=== PATIENT | female | born 1985 | race Caucasian/White ===

== ENCOUNTER 2022-02-02 07:13 | Emergency (ER) | payer BC ==
[~2022-02-02] VITALS: Ht 167.6 cm; Wt 83.9 kg
[~2022-02-02 07:13] MED LIST: 'PARAFON FORTE500 M1 PO; BACTRIM DS 8001 TA1 PO; CLINDAMYCIN HC300 MG PO; HYDROCODONE BIT1 T11 PO; KEFLEX500 MG PO; LISINOPRIL10 MG PO; LORAZEPAM2 MG PO; NAPROSYN500 MG PO; PROZAC10 MG PO
[2022-02-02 07:54] LABS: BASO % 0.6 % (0.0-1.0); EOS # 0.1 10*3/uL (0.0-0.4); EOS % 1.2 % (1.0-4.0); HEMATOCRIT 38.9 % (37.0-47.0); LYMPH # 1.3 10*3/uL (1.3-4.4); LYMPH % 20.4 % (27.0-41.0); MEAN CELL VOLUME 85.1 fl (81.0-99.0); MEAN CORPUSCULAR HGB 28.2 pg (27.0-31.0); MEAN CORPUSCULAR HGB CONC 33.2 g/dl (33.0-37.0); MEAN PLATELET VOLUME 9.3 fl (9.6-12.3); MONO # 0.7 10*3/uL (0.1-1.0); MONO % 10.4 % (3.0-9.0); NEUT # 4.3 10*3/uL (2.3-7.9); NEUT % 66.9 % (47.0-73.0); PLATELET COUNT AUTOMATED 326 10*3/uL (130-400); RED BLOOD COUNT 4.57 10*6/uL (4.10-5.10); RED CELL DISTRI WIDTH 12.7 % (0-14.5); WHITE BLOOD COUNT 6.4 10*3/uL (4.8-10.8)
[2022-02-02 08:06] LABS: BUN 8 mg/dl (7-24); CHLORIDE 111 mmol/L (98-107); POTASSIUM 3.1 mmol/L (3.5-5.1); SODIUM 142 mmol/L (136-145)
[2022-02-02 08:11] LABS: B-hCG (QUALITATIVE) NEGATIVE (NEGATIVE)
[2022-02-02 08:55] LABS: BILIRUBIN Negative (Negative); BLOOD 3+ (Negative); CLARITY Clear (Clear); COLOR Yellow (Yellow); GLUCOSE Negative (Negative); KETONE Negative (Negative); LEUKO ESTERASE Negative (Negative); NITRITE Negative (Negative); SPECIFIC GRAVITY <= 1.005 (1.001-1.030)
[2022-02-02] MEDS ORDERED: ZOFRAN4 MG PO (08:58)
[2022-02-02 09:12] LABS: BACTERIA 2+; RBC 21-30 rbc/hpf (0-2)
== END 2022-02-02 09:00 | disposition home or self-care (01) ==
LOC: ED 07:13
PROVIDERS: Emergency Medicine
DX: H81.09 Meniere's disease, unspecified ear (principal); R11.2 Nausea with vomiting, unspecified; R19.7 Diarrhea, unspecified

== ENCOUNTER → 2022-09-18 | Outpatient (CLI) | payer BC ==
[~2022-09-18] MED LIST changes: +ZOFRAN4 MG PO
== END | disposition home or self-care (01) ==
LOC: MRI 08-20 14:00
PROVIDERS: ATTEND Specialist
DX: R42 Dizziness and giddiness (principal)

== ENCOUNTER 2023-08-20 09:13 | Emergency (ER) | payer OTHER, BC ==
[~2023-08-20] VITALS: Ht 182.8 cm; Wt 113.4 kg
[2023-08-20] MEDS ORDERED: MIXED AMPHETAMI30 MG PO (09:16)
[2023-08-20] MEDS ORDERED: LOSARTAN-HCTZ1 EACH PO (09:16)
[2023-08-20] MEDS ORDERED: BUSPIRONE HCL10 MG PO (09:16)
[2023-08-20] MEDS ORDERED: TRAZODONE50 MG PO (09:17)
[2023-08-20] MEDS ORDERED: LYLEQ0.35 MG PO (09:17)
[2023-08-20 10:17] LABS: BASO % 0.5 % (0.0-1.0); EOS # 0.1 10*3/uL (0.0-0.4); EOS % 1.4 % (1.0-4.0); HEMATOCRIT 37.2 % (37.0-47.0); LYMPH # 1.6 10*3/uL (1.3-4.4); LYMPH % 18.1 % (27.0-41.0); MEAN CELL VOLUME 84.4 fl (81.0-99.0); MEAN CORPUSCULAR HGB 27.9 pg (27.0-31.0); MEAN CORPUSCULAR HGB CONC 33.1 g/dl (33.0-37.0); MEAN PLATELET VOLUME 9.3 fl (9.6-12.3); MONO # 0.7 10*3/uL (0.1-1.0); NEUT # 6.3 10*3/uL (2.3-7.9); NEUT % 71.5 % (47.0-73.0); PLATELET COUNT AUTOMATED 328 10*3/uL (130-400); RED BLOOD COUNT 4.41 10*6/uL (4.10-5.10); RED CELL DISTRI WIDTH 12.5 % (0-14.5); WHITE BLOOD COUNT 8.8 10*3/uL (4.8-10.8)
[2023-08-20 10:41] LABS: ALKALINE PHOSPHATASE 80 U/L (46-116); BETA-HCG, QUANT < 3.0 mIU/mL (3-10); BUN 13 mg/dl (9-23); CHLORIDE 108 mmol/L (98-107); SGPT/ALT 13 U/L (5-49); TOTAL PROTEIN 6.8 gm/dL (6.0-8.0)
[2023-08-20] MEDS ORDERED: PERCOCET 5-3251 EACH PO (13:40)
[2023-08-20] MEDS ORDERED: ONDANSETRON4 MG SL (13:40)
[2023-08-20] MEDS ORDERED: CYCLOBENZAPRINE5 M3 PO (14:00)
== END 2023-08-20 13:48 | disposition home or self-care (01) ==
LOC: ED 09:13
PROVIDERS: Internal Medicine
DX: M54.2 Cervicalgia (principal); M25.512 Pain in left shoulder; Z90.89 Acquired absence of other organs; Z98.890 Other specified postprocedural states